=== PATIENT | female | born 1990 | race Caucasian/White ===

== ENCOUNTER 2017-07-11 12:31 | Emergency (ER) | payer MEDICAID, OTHER ==
[~2017-07-11] VITALS: Ht 154.9 cm; Wt 64.0 kg
[~2017-07-11 12:31] MED LIST: NONE REPORTED
[2017-07-11] MEDS ORDERED: MAGNESIUM/ALUMINUM HYDROXIDE/SIMETHICONE 30ML UDC PO STA (15:13)
[2017-07-11] MEDS ORDERED: VISCOUS LIDOCAINE 2% 15 ML UDC MM ONE (15:15)
[2017-07-11 15:39] LABS: BASOPHILS % 0.4 % (0.0-2.0); EOSINOPHILS % 1.3 % (0.0-5.0); HEMATOCRIT. 37.8 % (36.0-48.0); HEMOGLOBIN. 12.9 g/dL (12.0-16.0); LYMPHOCYTES % 21.7 % (20.0-50.0); MEAN CORPUSCULAR HEMOGLOBIN 31.6 pg (28.0-32.0); MEAN CORPUSCULAR VOLUME 92.8 fL (81.0-99.0); MEAN PLATELET VOLUME 9.2 fl (7.4-10.4); MONOCYTES % 5.7 % (2.0-8.0); NEUTROPHILS % 70.9 % (40.0-76.0); PLATELET 227 x1000/uL (130-400); RED BLOOD CELL COUNT 4.08 mill/uL (4.2-5.4); RED CELL DISTRIBUTION WIDTH 12.3 % (11.6-14.6)
[2017-07-11 15:45] LABS: CHLORIDE 107 mEq/L (98-107)
[2017-07-11 15:51] LABS: CARBON DIOXIDE 27 mEq/L (21-32)
[2017-07-11 16:00] LABS: CLARITY URINE CLOUDY (CLEAR); COLOR URINE YELLOW (YELLOW); KETONES URINE NEGATIVE (NEGATIVE); LEUKOCYTE ESTERASE URINE 2+ (NEGATIVE); NITRITE URINE NEGATIVE (NEGATIVE); OCCULT BLOOD URINE NEGATIVE (NEGATIVE); PROTEIN URINE NEGATIVE (NEGATIVE); SPECIFIC GRAVITY URINE 1.027 (1.005-1.030); UROBILINOGEN URINE 0.2 E.U./dL (0.2-1.0)
[2017-07-11 16:47] LABS: PROTHROMBIN TIME 10.1 sec (9.4-11.6)
[2017-07-11 17:20] VITALS: BP 117/59
== END 2017-07-11 17:22 | disposition home or self-care (01) ==
LOC: ER 13:20
DX: K29.70 Gastritis, unspecified, without bleeding (principal); N39.0 Urinary tract infection, site not specified
CPT/HCPCS: 36415; 80053; 81001; 81025; 83690; 85025; 85610; 99284

== ENCOUNTER 2019-03-02 05:23 | Emergency (ER) | payer MEDICAID ==
[~2019-03-02] VITALS: Ht 162.6 cm; Wt 61.0 kg
[2019-03-02] MEDS ORDERED: SODIUM CHLORIDE 0.9% 1,000 ML IV ONE (06:20)
[2019-03-02] MEDS ORDERED: ONDANSETRON HCL 4MG/2ML INJ IV STA (06:20)
[2019-03-02] MEDS ORDERED: MORPHINE SULFATE 4 MG/ML CPJ (NOT FOR IM USE) IV STA (06:20)
[2019-03-02 06:55] LABS: BASOPHILS % 0.6 % (0.0-2.0); EOSINOPHILS % 1.1 % (0.0-5.0); HEMATOCRIT. 42.3 % (36.0-48.0); HEMOGLOBIN. 14.6 g/dL (12.0-16.0); LYMPHOCYTES % 26.8 % (20.0-50.0); MEAN CORPUSCULAR HEMOGLOBIN 31.5 pg (28.0-32.0); MEAN CORPUSCULAR VOLUME 91.4 fL (81.0-99.0); MEAN PLATELET VOLUME 8.7 fl (7.4-10.4); MONOCYTES % 5.8 % (2.0-8.0); NEUTROPHILS % 65.7 % (40.0-76.0); PLATELET 245 x1000/uL (130-400); RED BLOOD CELL COUNT 4.63 mill/uL (4.2-5.4); RED CELL DISTRIBUTION WIDTH 11.9 % (11.6-14.6)
[2019-03-02 07:02] LABS: CHLORIDE 105 mEq/L (98-107)
[2019-03-02 07:05] LABS: PARTIAL THROMBOPLASTIN TIME 27.9 sec (23.4-31.0)
[2019-03-02 07:14] LABS: HCG SCREEN NEGATIVE
[2019-03-02] MEDS ORDERED: KETOROLAC 30MG/ML VIAL IV ONE (08:45)
[2019-03-02] MEDS ORDERED: DEXAMETHASONE 10 MG/ML VIAL IV ONE (08:45)
[2019-03-02] MEDS ORDERED: IOHEXOL-350 100 ML BOTTLE ONE (09:09)
[2019-03-02 11:32] VITALS: BP 112/68
== END 2019-03-02 11:33 | disposition home or self-care (01) ==
LOC: ER 05:23
DX: R51 Headache (principal); Z90.49 Acquired absence of other specified parts of digestive tract
CPT/HCPCS: 36415; 70496; 70498; 71045; 80048; 81025; 84703; 85025; 85610; 85730; 96374; 96375; 99284; J1100; J1885; J2270; J2405; J7030; Q9967

== ENCOUNTER 2020-09-11 05:40 | Inpatient (IN) | payer MEDICAID ==
[~2020-09-11] VITALS: Ht 157.5 cm; Wt 69.9 kg
[2020-09-11] MEDS ORDERED: MORPHINE SULFATE 4 MG/ML CPJ (NOT FOR IM USE) IV STA (06:11)
[2020-09-11] MEDS ORDERED: ONDANSETRON HCL 4MG/2ML INJ IV STA (06:11)
[2020-09-11 06:37] LABS: BASOPHILS % 0.5 % (0.0-2.0); HEMATOCRIT. 40.2 % (36.0-48.0); HEMOGLOBIN. 13.5 g/dL (12.0-16.0); MEAN CORPUSCULAR HEMOGLOBIN 30.9 pg (28.0-32.0); MEAN CORPUSCULAR VOLUME 92.3 fL (81.0-99.0); MEAN PLATELET VOLUME 8.8 fl (7.4-10.4); MONOCYTES % 7.3 % (2.0-8.0); NEUTROPHILS % 57.2 % (40.0-76.0); PLATELET 204 x1000/uL (130-400); RED BLOOD CELL COUNT 4.36 mill/uL (4.2-5.4); RED CELL DISTRIBUTION WIDTH 12.5 % (11.6-14.6)
[2020-09-11 06:44] LABS: CHLORIDE 109 mEq/L (98-107)
[2020-09-11 06:58] LABS: HCG SCREEN NEGATIVE
[2020-09-11] MEDS ORDERED: MORPHINE SULFATE 4 MG/ML CPJ (NOT FOR IM USE) IV ONE (07:30)
[2020-09-11] MEDS ORDERED: DICYCLOMINE 10 MG/5 ML ORAL SYR PO STA (09:18)
[2020-09-11] MEDS ORDERED: VISCOUS LIDOCAINE 2% 15 ML UDC PO STA (09:18)
[2020-09-11] MEDS ORDERED: MAGNESIUM/ALUMINUM HYDROXIDE/SIMETHICONE 30ML UDC PO STA (09:18)
[2020-09-11 10:30] VITALS: BP 112/73
[2020-09-11] MEDS ORDERED: IPRATROPIUM/ALBUTEROL 0.5-3(2.5)MG/3ML NEB HHN PRN (10:30)
[2020-09-11] MEDS ORDERED: MORPHINE SULFATE 2 MG/ML CPJ (NOT FOR IM USE) IV PRN (10:30)
[2020-09-11] MEDS ORDERED: DOCUSATE SODIUM 100MG CAPSULE PO PRN (10:30)
[2020-09-11] MEDS ORDERED: ACETAMINOPHEN 325MG TABLET PO PRN ×2 (10:30)
[2020-09-11] MEDS ORDERED: HYDROCODONE/ACETAMINOPHEN 5/325MG TABLET PO PRN (10:30)
[2020-09-11] MEDS ORDERED: ONDANSETRON HCL 4MG/2ML INJ IV PRN (10:30)
[2020-09-11] MEDS ORDERED: NITROGLYCERIN 0.4MG TABLET SL SL PRN (10:30)
[2020-09-11] MEDS ORDERED: CLONIDINE 0.1MG TABLET PO PRN (10:30)
[2020-09-11] MEDS ORDERED: CALCIUM CARBONATE 500MG TABLET CHEW PO PRN (10:30)
[2020-09-11] MEDS ORDERED: LORAZEPAM 0.5MG TABLET PO PRN (10:30)
[2020-09-11 12:00] VITALS: BP 117/59
[2020-09-11 12:57] LABS: HEPATITIS B SURFACE ANTIGEN NEGATIVE
[2020-09-11 13:27] LABS: HEPATITIS A AB IGM NEGATIVE (NEGATIVE)
[2020-09-11 14:10] LABS: AMYLASE 68 IU/L (25-115)
[2020-09-11 16:00] VITALS: BP 110/60
[2020-09-11 20:00] VITALS: BP 109/70
[2020-09-12 01:31] VITALS: BP 119/67
[2020-09-12 04:00] VITALS: BP 112/62
[2020-09-12 08:00] VITALS: BP 108/63
[2020-09-12 12:00] VITALS: BP 107/69
[2020-09-12 16:00] VITALS: BP 110/63
[2020-09-12 16:51] VITALS: BP 117/82
== END 2020-09-12 17:29 | disposition home or self-care (01) | DRG 203 ==
LOC: ER 05:40 → 8WST 10:15 → ENRESERV 10:37
PROVIDERS: ADMIT Internal Medicine; ATTEND Internal Medicine
DX: M94.0 Chondrocostal junction syndrome [Tietze] (principal); K76.0 Fatty (change of) liver, not elsewhere classified; E66.01 Morbid (severe) obesity due to excess calories; Z90.49 Acquired absence of other specified parts of digestive tract; Z68.28 Body mass index [BMI] 28.0-28.9, adult
CPT/HCPCS: 36415; 71045; 71275; 76700; 80053; 82150; 83880; 84484; 84703; 85025; 86705; 86709; 86803; 87340; 93005; 93306; 99285; J2270; J2405

== ENCOUNTER 2022-11-30 22:56 | Emergency (ER) | payer MEDICAID, OTHER ==
[~2022-11-30] VITALS: Ht 152.4 cm; Wt 82.0 kg
[2022-11-30 23:19] VITALS: BP 150/78
[2022-12-01] MEDS ORDERED: ERYT1OIN6 EACHEYE (01:53)
[2022-12-01] MEDS ORDERED: CLAR10 PO (01:53)
== END 2022-12-01 03:44 | disposition left against medical advice (07) ==
LOC: ER 22:56
DX: H10.33 Unspecified acute conjunctivitis, bilateral (principal); H01.006 Unspecified blepharitis left eye, unspecified eyelid; H01.003 Unspecified blepharitis right eye, unspecified eyelid
CPT/HCPCS: 99281

== ENCOUNTER 2023-05-29 18:20 | Emergency (ER) | payer MEDICAID, OTHER ==
[~2023-05-29] VITALS: Ht 165.1 cm; Wt 76.2 kg
[~2023-05-29 18:20] MED LIST changes: +CLAR10 PO; +ERYT1OIN6 EACHEYE; -NONE REPORTED
[2023-05-29 18:26] VITALS: BP 137/75; O2SAT 98
[2023-05-29 20:23] LABS: BASOPHILS % 0.7 % (0.0-2.0); EOSINOPHILS % 0.9 % (0.0-5.0); HEMATOCRIT. 38.7 % (36.0-48.0); HEMOGLOBIN. 13.1 g/dL (12.0-16.0); LYMPHOCYTES % 22.9 % (20.0-50.0); MEAN CORPUSCULAR HGB CONC 33.7 g/dL (31.0-37.0); MEAN CORPUSCULAR VOLUME 94.9 fL (81.0-99.0); MONOCYTES % 5.2 % (2.0-8.0); NEUTROPHILS % 70.3 % (40.0-76.0); RED BLOOD CELL COUNT 4.08 mill/uL (4.2-5.4); RED CELL DISTRIBUTION WIDTH 12.9 % (11.6-14.6); WHITE BLOOD COUNT 10.3 x1000/uL (4.5-11.0)
[2023-05-29 21:38] LABS: DIFFERENTIAL COMMENT 1
[2023-05-29 22:06] LABS: MEAN PLATELET VOLUME 9.2 fl (7.4-10.4); PLATELET 221 x1000/uL (130-400)
[2023-05-29 22:45] VITALS: PULSE 70; RESP 20; TEMP 98.3
[2023-05-30 04:09] LABS: ALANINE AMINOTRANSFERASE 14 IU/L (10-49); ALBUMIN 3.7 g/dL (3.2-4.8); ASPARTATE AMINOTRANSFERASE 18 IU/L (<34); B-HCG QUANTITATIVE 45623 mIU/mL (<3); BILIRUBIN TOTAL 0.3 mg/dL (0.1-1.0); CALCIUM 9.2 mg/dL (8.7-10.4); CARBON DIOXIDE 19 mEq/L (21-32); CHLORIDE 108 mEq/L (98-107); CREATININE 0.5 mg/dL (0.6-1.0); GLUCOSE 95 mg/dL (70-105); POTASSIUM 4.1 mEq/L (3.5-5.1); PROTEIN TOTAL 6.4 g/dL (6.0-8.3); SODIUM 140 mEq/L (136-145); UREA NITROGEN BLOOD 7 mg/dL (9-23)
== END 2023-05-29 22:51 | disposition home or self-care (01) ==
LOC: ER 18:20
DX: O20.0 Threatened abortion (principal); F41.9 Anxiety disorder, unspecified; Z3A.16 16 weeks gestation of pregnancy
CPT/HCPCS: 36415; 76805; 80053; 84702; 85025; 99284